=== PATIENT | female | born 1970 | race Caucasian/White ===

== ENCOUNTER 2021-11-16 00:33 | Inpatient (IN) | payer OTHER, SELFPAY ==
[2021-11-16] VITALS (9 sets, daily range): BP systolic 98–119; BP diastolic 51–67; PULSE 80–96; RESP 14–22; TEMP 36.4–37.3; O2SAT 95–98; BMI 19.3
--- NOTE | 2021-11-16 | ECG_ITS ---
Test Reason : sob Blood Pressure : / mmHG Vent. Rate : 085 BPM Atrial Rate : 085 BPM P-R Int : 122 ms QRS Dur : 080 ms QT Int : 362 ms P-R-T Axes : 072 067 063 degrees QTc Int : 430 ms Normal sinus rhythm Nonspecific ST abnormality Abnormal ECG No previous ECGs available Referred By: Generic ED Physician Electronically Signed By:SWATHI LAIRD MD
--- NOTE | ~2021-11-16 | XR_ITS ---
EXAMINATION: XR CHEST CLINICAL INFORMATION: Shortness of breath COMPARISON: None TECHNIQUE: 2 views of the chest were obtained. FINDINGS: Lung volumes are symmetric. On the lateral view there is mild focal opacity overlying the posterior lower lobes, without definite correlate on the frontal view. No evidence of pneumothorax, pleural effusion, or pulmonary edema. The cardiomediastinal contour is unremarkable. No acute osseous findings are seen. XR/XR chest 2V IMPRESSION: Suggestion of mild focal lower lobe opacity on the lateral view, without a definite correlate on the frontal view. Short-term radiographic follow-up would be helpful to assess for developing consolidation.
--- NOTE | ~2021-11-16 | CT_ITS ---
EXAMINATION: CT ANGIOGRAM OF THE CHEST WITH AND WITHOUT CONTRAST (CT PULMONARY ANGIOGRAM FOR PE) CLINICAL INFORMATION: Reason for Exam chest pain COMPARISON: Chest x-ray from earlier today TECHNIQUE: Prior to contrast administration, noncontrast localization images were obtained. Subsequently, multidetector volumetric imaging was performed from the thoracic inlet to below the diaphragms following the administration of 65 mL Omnipaque 350 intravenous contrast. No contrast reaction reported Sagittal, coronal, and MIP oblique sagittal reformatted images were obtained on the CT workstation, uploaded to PACS, and reviewed. This CT examination was performed using dose optimization techniques as appropriate, variously including the following: *Automated exposure control *Adjustment of mA and/or kV according to patient size (this includes techniques or standardized protocols for targeted exams where dose is matched to indication/reason for exam; i.e. extremities or head) *Use of iterative reconstruction technique Total exam dose-length product 181 mGy-cm FINDINGS: QUALITY OF STUDY/CONTRAST BOLUS: Satisfactory. PULMONARY ARTERIES: There is segmental to subsegmental embolus in the posterior right lower lobe. Focus of thrombus is also noted near the origin of the superior right lower lobe segmental vessel. There is possible subsegmental embolus in the left lower lobe, though this is suboptimally assessed due to motion artifact. THORACIC AORTA: No aneurysm or dissection. LUNG: Biapical scarring is noted. There is mild upper lobe predominant emphysema. There is a region of focal mixed density consolidation in the posterior basilar right lower lobe, suggesting developing pulmonary infarct given the presence of pulmonary embolus. Component of subsegmental atelectasis is also likely present at the right base. PLEURA: Trace right pleural effusion. No pneumothorax. MEDIASTINUM: A subcentimeter left thyroid lobe nodule is noted. There are subcentimeter mediastinal lymph nodes within the range of normal variation. Cardiac size is within normal limits; no pericardial effusion. CHEST WALL/AXILLA: No axillary or internal mammary lymphadenopathy. OSSEOUS STRUCTURES: No acute or suspicious osseous abnormality. UPPER ABDOMEN: Unremarkable. No reflux of contrast into the hepatic veins to suggest elevated right heart pressures. CT/CT angio chest PE protocol IMPRESSION: 1. Segmental to subsegmental right lower lobe pulmonary embolus. Additional subsegmental embolus in the left lower lobe cannot be excluded. 2. Region of mixed density consolidation in the posterior basilar right lower lobe, suggesting developing pulmonary infarct. 3. Trace right pleural effusion. 4. Mild upper lobe predominant emphysema. VTE: positive This critical result was discussed with Dr. Moran on 11/16/2021 5:53 AM, and it was ascertained that the content and urgency of the report was understood at the time of direct communication.
[2021-11-16 01:40] LABS: MANUAL DIFF FLAG NO
[2021-11-16 01:41] LABS: Basophils Absolute Auto 0.1 X10*3/uL (0.0-0.2); Basophils Percent Auto 0.5 % (0-2); Eosinophils Absolute Auto 0.1 X10*3/uL (0.0-0.4); Eosinophils Percent Auto 1.1 % (0-4); Hemoglobin 13.2 g/dl (12.0-16.0); Imm Gran Abs Auto 0.04 X10*3/uL (0.00-0.03); Imm Gran Pct Auto 0.3 % (0.0-0.4); Lymphocytes Absolute Auto 2.1 X10*3/uL (1.2-4.9); Mean Corpuscular Hemoglobin 28.2 pg (27.0-33.0); Mean Corpuscular Volume 85.5 fL (80.0-98.0); Mean Platelet Volume 9.4 fL (9.4-12.3); Monocytes Percent Auto 7.8 % (2-11); Neutrophils Absolute Auto 9.7 x10*3/uL (2.0-8.3); Neutrophils Percent Auto 74.3 % (45-73); Platelet Count 265 X10*3/uL (160-400); Red Blood Count 4.68 X10*6/uL (4.20-5.50); Red Cell Distribution Width 13.7 % (11.0-16.0); White Blood Count 13.1 X10*3/uL (4.8-10.8)
[2021-11-16 02:06] LABS: Alanine Aminotransferase 7 U/L (0-31); Albumin Level 4.4 g/dL (3.5-5.0); Alkaline Phosphatase 85 U/L (39-117); Anion Gap 14 (12-20); Aspartate Amino Transferase 10 U/L (5-31); Bilirubin Total 0.7 mg/dL (0.0-1.0); Blood Urea Nitrogen 12 mg/dL (9-16); Calcium 9.1 mg/dL (8.4-10.2); Carbon Dioxide 20 mmol/L (22-29); Chloride 106 mmol/L (96-108); Creatinine Clr Calc Pharmacy 67.7; Estimated Glomerular Filt Rate > 60; Glucose Random 137 mg/dL (60-115); Potassium 3.9 mmol/L (3.3-5.1); Sodium 136 mmol/L (135-145); Total Protein 7.5 g/dL (6.5-8.0)
[2021-11-16 02:12] LABS: Troponin-I High Sensitivity < 3.5 ng/L (<3.5-17.0)
--- NOTE | 2021-11-16 04:44 | ED.SOB ---
HPI - SOB/Dyspnea General Chief Complaint: Dyspnea Stated Complaint: collapsed lung? Time Seen by Provider: 11/16/21 04:41 History of Present Illness HPI Narrative: Patient is a 50-year-old female presents today with having back pain. Patient claimed was very sudden in onset it is associated with shortness of breath. It is worse with taking deep breath. Radiates from posterior mid chest to the right shoulder. Patient has a long history of smoking. No history of diabetes, hypertension, high cholesterol, PA. Patient from home. There is no leg swelling. There is no diaphoresis. No chance of being . Related Data Allergies Allergy/AdvReac Type Severity Reaction Status Date / Time No Known Allergies Allergy Verified 11/16/21 01:31 Review of Systems Review of Systems: Positive posterior mid back pain. Positive shortness of breath Yes all other systems are reviewed and are negative [facility] Past Medical History Attestation statement: The following information was validated with the patient. Social History Social History Alcohol intake: current Alcohol intake frequency: 0-2 drinks per day Patient Tobacco Use Status: Current everyday Tobacco user Use of substances other than those prescribed or required for medical reasons: No Advance Directives: No Patient : No Physical Exam Vital Signs: Vital Signs: Last Vital Signs Temp 98.4 F 11/16/21 01:24 Pulse 88 11/16/21 05:34 Resp 16 11/16/21 05:36 BP 107/65 11/16/21 05:34 Pulse Ox 98 11/16/21 05:34 O2 Del Method 11/16/21 05:34 BMI result Body Mass Index 19.3 Appearance: Alert. Oriented X3. No acute distress. Eyes: Pupils equal, round and reactive to light. ENT: Pharynx normal. Neck: Normal inspection. Neck supple. No lymph nodes noted. No crepitus CVS: Normal heart rate and rhythm. Pulses normal. Normal S1 and S2 Respiratory: No respiratory distress. Breath sounds normal. No Wheezing. No rales Abdomen: Soft and nontender. No rigidity. No distention. good BS x4 Skin: Skin warm and dry. Normal skin color. Normal skin turgor. Extremities: No lower extremity edema. Neurovascular intact to all extremities. No Lacerations. No Rash Neuro: Oriented X 3. No motor deficit. No sensory deficit. Moving all extermities. No slurred speech MDM - SOB/Dyspnea MDM Narrative Medical decision making narrative: Patient's EKG showed a sinus pattern heart rate is 70 [place] QRS QT within normal limits is no acute ST segment elevation Positive chest pain worse with deep inspiration. Long-time smoker. Chest x-ray was nonspecific. A CTA of the chest was done. It is showed positive right-sided pulmonary emboli. The finding was discussed with the hospitalist team. Patient was started on Lovenox. Will admit for further evaluation of the pulmonary emboli. Patient's respiratory rate is 22 likely related to the PE. Patient's O2 sats 97% on room air. Medical Records Attestation: I reviewed the patient's medical records. Lab Data Attestation: I reviewed the patient's lab results. Result diagrams: 11/16/21 01:35 11/16/21 01:35 Labs: Lab Results 11/16/21 11/16/21 11/16/21 Range/Units 01:35 01:35 01:35 WBC 13.1 H (4.8-10.8) X10*3/uL RBC 4.68 (4.20-5.50) X10*6/uL Hgb 13.2 (12.0-16.0) g/dl Hct 40.0 (37.0-47.0) % MCV 85.5 (80.0-98.0) fL MCH 28.2 (27.0-33.0) pg MCHC 33.0 (31.0-35.0) g/dl RDW 13.7 (11.0-16.0) % Plt Count 265 (160-400) X10*3/uL MPV 9.4 (9.4-12.3) fL Immature Gran % (Auto) 0.3 (0.0-0.4) % Neut % (Auto) 74.3 H (45-73) % Lymph % (Auto) 16.0 L (20-40) % Whitman % (Auto) 7.8 (2-11) % Eos % (Auto) 1.1 (0-4) % Baso % (Auto) 0.5 (0-2) % Lymph # (Auto) 2.1 (1.2-4.9) X10*3/uL [place]man # (Auto) 1.0 (0.1-1.2) X10*3/uL Eos # (Auto) 0.1 (0.0-0.4) X10*3/uL Baso # (Auto) 0.1 (0.0-0.2) X10*3/uL Abs Immat Gran (auto) 0.04 H (0.00-0.03) X10*3/uL Absolute Neuts (auto) 9.7 H (2.0-8.3) x10*3/uL Absolute Nucleated RBC 0.000 (0.0-0.012) X10*3/uL Nucleated RBC % (auto) 0.0 (0.0-0.2) /100WBC Sodium 136 (135-145) mmol/L Potassium 3.9 (3.3-5.1) mmol/L Chloride 106 (96-108) mmol/L Carbon Dioxide 20 L (22-29) mmol/L Anion Gap 14 (12-20) BUN 12 (9-16) mg/dL Creatinine 0.96 (0.5-1.4) mg/dL Estim Creat Clear Calc 67.7 Estimated GFR > 60 Random Glucose 137 H (60-115) mg/dL Calcium 9.1 (8.4-10.2) mg/dL Total Bilirubin 0.7 (0.0-1.0) mg/dL AST 10 (5-31) U/L ALT 7 (0-31) U/L Alkaline Phosphatase 85 (39-117) U/L Troponin I High Sens < 3.5 (<3.5-17.0) ng/L Total Protein 7.5 (6.5-8.0) g/dL Albumin 4.4 (3.5-5.0) g/dL Discharge Plan Discharge Clinical Impression: Pulmonary embolism Patient Disposition: Admitted As Inpatient
[2021-11-16] MEDS: iohexoL 350 MG/ML 100 ML INFUS..BTL 65 ML IV (05:26)
--- NOTE | 2021-11-16 07:53 | PHA.MEDREC ---
MED REC COMPLETE, PATIENT IS NOT ON ANY MEDICATIONS Pharmacy Consult ? Medication Reconciliation Pharmacy has completed the medication reconciliation.
[2021-11-16] MEDS: Morphine Sulfate 2 MG/ML CARTRIDGE IVPUSH (11:06)
[2021-11-16 11:08] LABS: Hematocrit 38.6 % (37.0-47.0); Hemoglobin 12.9 g/dl (12.0-16.0); Mean Corpuscular HGB Conc 33.4 g/dl (31.0-35.0); Mean Corpuscular Hemoglobin 28.7 pg (27.0-33.0); Mean Corpuscular Volume 85.8 fL (80.0-98.0); Mean Platelet Volume 10.1 fL (9.4-12.3); Platelet Count 258 X10*3/uL (160-400); Red Cell Distribution Width 13.7 % (11.0-16.0); White Blood Count 10.8 X10*3/uL (4.8-10.8)
--- NOTE | 2021-11-16 11:12 | PM.IMHP ---
History of Present Illness Date of Service: 11/16/21 Chief Complaint: chest pain 50 year old female with with no medical issues, but has family hisotry of clotting desorder ( mother and brother ) had blood clots, she had car trip to [facility] and back in middle of September. She had suddent onset of severe chest pain on the right side going to shoulder yesterday while in shower and persisted, no sob, no cough, troponin and ECG unremarkable. CT chest show PE as detail here: 1.? Segmental to subsegmental right lower lobe pulmonary embolus. Additional subsegmental embolus in the left lower lobe cannot be excluded. 2.? Region of mixed density consolidation in the posterior basilar right lower lobe, suggesting developing pulmonary infarct. 3.? Trace right pleural effusion. 4.? Mild upper lobe predominant emphysema. She is not hypoxic, no tachycardia and hemodynamically stable. Review of Systems Review of Systems: Chest pain no sob no dizziness no swelling of legs Yes all other systems are reviewed and are negative PMFSH Pertinent family history: Mother and brother with blood clots, no details Social History Alcohol intake: current Alcohol intake frequency: 0-2 drinks per day Patient Tobacco Use Status: Current everyday Tobacco user Use of substances other than those prescribed or required for medical reasons: No Advance Directives: No Patient : No Meds Allergies Allergy/AdvReac Type Severity Reaction Status Date / Time No Known Allergies Allergy Verified 11/16/21 01:31 Active Medications: Current Medications Melatonin (Melatonin 3 Mg Tablet) 6 mg PO BEDTIME PRN PRN Reason: Insomnia Morphine Sulfate (Morphine Sulfate 2 Mg/Ml Cartridge) 2 mg IVPUSH Q3H PRN; Protocol PRN Reason: Pain, Severe (Pain Scale 7-10) Last Admin: 11/16/21 11:06 Dose: 2 mg Oxycodone HCl (Oxycodone Hcl Immed Release 5 Mg Tablet) 5 mg PO Q6H PRN PRN Reason: Pain, Severe (Pain Scale 7-10) Pharmacy Consult (Consult Rx Perform Med Rec) 1 each MISCELLANE ONCE PRN PRN Reason: Consult order Sodium Chloride (0.9 % Sodium Chloride Flush 3 Ml Syringe) 3 ml IVFLUSH [facility] Home Medications Medication Instructions Recorded Confirmed Last Taken Type No Known Home Meds 11/16/21 11/16/21 Unknown History Physical Exam Vital Signs and Narrative: Vital Signs: Last Vital Signs Temp 98.5 F 11/16/21 07:25 Pulse 80 11/16/21 07:25 Resp 18 11/16/21 07:25 BP 103/59 L 11/16/21 07:25 Pulse Ox 97 11/16/21 07:25 O2 Del Method 11/16/21 07:25 BMI result Body Mass Index 19.3 Results Labs CBC and Chem 7: 11/16/21 10:51 11/16/21 01:35 Labs: Laboratory Results - last 24 hr 11/16/21 11/16/21 11/16/21 01:35 01:35 01:35 MCV 85.5 MCH 28.2 MCHC 33.0 RDW 13.7 Plt Count 265 MPV 9.4 Immature Gran % (Auto) 0.3 Neut % (Auto) 74.3 H Lymph % (Auto) 16.0 L [place] % (Auto) 7.8 Eos % (Auto) 1.1 Baso % (Auto) 0.5 Lymph # (Auto) 2.1 [place] # (Auto) 1.0 Eos # (Auto) 0.1 Baso # (Auto) 0.1 Abs Immat Gran (auto) 0.04 H Absolute Neuts (auto) 9.7 H Absolute Nucleated RBC 0.000 Nucleated RBC % (auto) 0.0 Anion Gap 14 Estim Creat Clear Calc 67.7 Estimated GFR > 60 Random Glucose 137 H Calcium 9.1 Total Bilirubin 0.7 AST 10 ALT 7 Alkaline Phosphatase 85 Troponin I High Sens < 3.5 Total Protein 7.5 Albumin 4.4 11/16/21 10:51 MCV 85.8 MCH 28.7 MCHC 33.4 RDW 13.7 Plt Count 258 MPV 10.1 Immature Gran % (Auto) Neut % (Auto) Lymph % (Auto) [place] % (Auto) Eos % (Auto) Baso % (Auto) Lymph # (Auto) [place] # (Auto) Eos # (Auto) Baso # (Auto) Abs Immat Gran (auto) Absolute Neuts (auto) Absolute Nucleated RBC 0.000 Nucleated RBC % (auto) 0.0 Anion Gap Estim Creat Clear Calc Estimated GFR Random Glucose Calcium Total Bilirubin AST ALT Alkaline Phosphatase Troponin I High Sens Total Protein Albumin Imaging Radiologist's Impressions: Impressions Chest X-Ray 11/16/21 01:51 IMPRESSION: Suggestion of mild focal lower lobe opacity on the lateral view, without a definite correlate on the frontal view. Short-term radiographic follow-up would be helpful to assess for developing consolidation. Chest CTA 11/16/21 05:20 IMPRESSION: 1. Segmental to subsegmental right lower lobe pulmonary embolus. Additional subsegmental embolus in the left lower lobe cannot be excluded. 2. Region of mixed density consolidation in the posterior basilar right lower lobe, suggesting developing pulmonary infarct. 3. Trace right pleural effusion. 4. Mild upper lobe predominant emphysema. VTE: positive This critical result was discussed with Dr. Moran on 11/16/2021 5:53 AM, and it was ascertained that the content and urgency of the report was understood at the time of direct communication. Assessment and Plan (1) Pulmonary embolism: Status: Acute Plan Acute pulmonary Embolism with chest pain due to pulmonary infarction in patient with positive family history of VTE Plan: Given hemodynamic stability[facility] will need [facility] work, and therefore will consult Heme. Morphine and Oxycodone for pain Quality Stroke Does the patient have a stroke diagnosis?: No VTE Prior VTE?: No VTE Risk Level:: Medical - moderate - high VTE Device Contraindication: Treatment Not Indicated VTE Drug Contraindication: N/A - Med Ordered
[2021-11-16 11:19] LABS: INTERNATIONAL NORM RATIO 1.1 (0.9-1.1); Prothrombin Time 12.4 SEC (10.0-13.1)
[2021-11-16 11:22] LABS: Partial Thromboplastin Time 30.2 SEC (24.1-38.0)
[2021-11-16] MEDS: Enoxaparin Sodium 60 MG/0.6 ML SYRINGE SUBCUT (11:23)
[2021-11-16 14:38] LABS: COVID-19 Test Negative (Negative)
[2021-11-16] MEDS: oxyCODONE HCl Immed Release 5 MG TABLET PO ×2 (15:03→22:44)
[2021-11-16] MEDS: 0.9 % Sodium Chloride Flush 3 ML SYRINGE IVFLUSH (15:04)
--- NOTE | 2021-11-16 16:06 | PM.HEMONCCN ---
Subjective - Subjective Chief complaint: Right lower chest pain Patient: new to practice Consult date: 11/16/21 Requesting Physician: Dr. Weller Primary Care Provider: None Physician HPI - Consult Narrative Reason for consult: Pulmonary embolism Narrative: Stacey Perez is a 50 year old female who presented with right pleuritic chest pain and found to have pulmonary embolism. She was in good health until she experienced sharp sudden onset pain just yesterday while in the shower. It was intense enough that she thought her lung had collapsed. She reported associated shortness of breath, no diaphoresis or dizziness. No history of pain or swelling in her legs. She travels to in from [place], last travel was in September 2021. She is a chronic smoker. She does not have a PCP, she has never had a screening mammogram on colonoscopy. 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 She reached menopause at age 44. She has 2 grown-up children and a grandchild. Her family history significant for mother and a brother both having blood clots. She does not know the circumstances around this. She does not talk to her brother and her mother is . Her father was treated for early prostate cancer. There is no other cancer in the family that she can recall. Review of Systems - Constitutional Reports as per HPI, Denies fatigue, Denies lack of energy, Denies malaise, Denies night sweats, Denies poor appetite, Denies weakness, Denies weight loss - Cardiovascular Reports no additional cardiovascular complaints - Respiratory Reports no additional respiratory complaints - Gastrointestinal Reports no additional gastrointestinal complaints Oncology Screenings - ECOG Performance Status ECOG Performance Status: 1 [facility] Family History: Family History (Last Updated 11/16/21 @ 16:12 by Nieves Hogue MD) Mother DVT (deep venous thrombosis) Brother DVT (deep venous thrombosis) Father Prostate cancer Social History: Social History (Last Reviewed 11/16/21 @ 11:17 by Lorenzo Weller MD) Tobacco History: Patient Tobacco Use Status: Current everyday Tobacco Substance Use History: Use of substances other than those prescribed or required for medical reasons: No Advance Directives: Advance Directives: No Advance Directives Information Provided: Advance Directives Information Provided comment: declined Nutrition Assessment: Patient : No Home Medications and Allergies Current Medications: Current Medications Melatonin (Melatonin 3 Mg Tablet) 6 mg PO BEDTIME PRN PRN Reason: Insomnia Morphine Sulfate (Morphine Sulfate 2 Mg/Ml Cartridge) 2 mg IVPUSH Q3H PRN; Protocol PRN Reason: Pain, Severe (Pain Scale 7-10) Last Admin: 11/16/21 11:06 Dose: 2 mg Oxycodone HCl (Oxycodone Hcl Immed Release 5 Mg Tablet) 5 mg PO Q6H PRN PRN Reason: Pain, Severe (Pain Scale 7-10) Last Admin: 11/16/21 15:03 Dose: 5 mg Pharmacy Consult (Consult Rx Perform Med Rec) 1 each MISCELLANE ONCE PRN PRN Reason: Consult order Sodium Chloride (0.9 % Sodium Chloride Flush 3 Ml Syringe) 3 ml IVFLUSH QSHIFT JIMBO Last Admin: 11/16/21 15:04 Dose: 3 ml Home Medications Medication Instructions Recorded Confirmed Type No Known Home Meds 11/16/21 11/16/21 History Allergies Allergy/AdvReac Type Severity Reaction Status Date / Time No Known Allergies Allergy Verified 11/16/21 01:31 Physical Exam Vital signs: Vital Signs Temp 97.6 F 11/16/21 14:47 Pulse 89 11/16/21 14:47 Resp 16 11/16/21 14:51 BP 103/51 L 11/16/21 14:47 Pulse Ox 96 11/16/21 14:47 O2 Del Method 11/16/21 14:47 Intake & Output 11/15/21 11/16/21 11/16/21 18:59 06:59 18:59 Other: Weight 61.235 kg Weight 61.235 kg - Constitutional Present: no acute distress, average body habitus - Routine HEENT Exam Head: Present: normal inspection Eye: Present: EOMI, PERRL - Routine Neck Exam Present: supple. Absent: lymphadenopathy - Routine Respiratory Exam Present: CTAB. Absent: accessory muscle use - Routine Cardiovascular Exam Cardiovascular: Present: S1, S2 - Routine Abdominal Exam Present: soft - Routine Extremities Exam Present: normal inspection, pulses intact. Absent: pedal edema - Routine Skin Exam Present: intact. Absent: cyanosis - Routine Neurological Exam Present: alert, oriented X3 Hem/Onc Consult Result - Labs CBC & Chem 7: 11/16/21 10:51 11/16/21 01:35 Labs: Short CBC 11/16/21 11/16/21 Range/Units 01:35 10:51 WBC 13.1 H 10.8 (4.8-10.8) X10*3/uL Hgb 13.2 12.9 (12.0-16.0) g/dl Hct 40.0 38.6 (37.0-47.0) % Plt Count 265 258 (160-400) X10*3/uL BMP 11/16/21 01:35 Sodium 136 Potassium 3.9 Chloride 106 Carbon Dioxide 20 L BUN 12 Creatinine 0.96 Calcium 9.1 Liver Function 11/16/21 Range/Units 01:35 Total Bilirubin 0.7 (0.0-1.0) mg/dL AST 10 (5-31) U/L ALT 7 (0-31) U/L Alkaline Phosphatase 85 (39-117) U/L Albumin 4.4 (3.5-5.0) g/dL Assessment and Plan Patient Active problem list reviewed?: Yes (1) Pulmonary embolism Status: Acute Assessment and plan: 1. This is a pleasant 50-year-old woman with pulmonary embolism. CT angiogram performed 11/16/21 revealed segmental/subsegmental embolism in the posterior right lower lobe. Possible subsegmental embolus in left lower lobe but suboptimally assessed. Area of focal density/ consolidation in posterior basilar right lower lobe suggesting developing pulmonary infarct . Trace right pleural effusion. Mild emphysema, no other suspicious findings. Patient has been started on Lovenox 1 mg/kg b.i.d.. There is family history of thromboembolism. Her risk factors is family history as well as her history of smoking. Although she traveled by car to [place] and back this was in September. She could have developed lower extremity or pelvic vein thrombosis back then. Thrombophilia workup will be submitted in the outpatient setting. She can be transitioned to DOAC. For now, I have recommended at least 6 months of anticoagulation. Depending on thrombophilia workup, further recommendations will be made. Patient was advised to establish with PCP and go for screening mammogram and colonoscopy. She was advised to quit smoking. I thank you for this consultation. - Time Spent With Patient Time Spent with Patient (in minutes): 25
[2021-11-16 19:22] LABS: D Dimer High Sensitivity 313 NG/ML
--- NOTE | 2021-11-16 19:24 | PC.NURSE ---
Addendum entered by Patricia Romero 11/17/21 07:01: report given to NILES Paredes Addendum entered by Patricia Romero 11/16/21 19:52: pt is alert and oriented. no sign of acute distress notice. breathing equally unlabored. denies any chest pain or sob Original Note: report received from NILES Lea and Raisa
[2021-11-16] MEDS: Apixaban 5 MG TABLET 10 MG PO (22:42)
[2021-11-17 04:39] LABS: Hematocrit 37.6 % (37.0-47.0); Hemoglobin 12.5 g/dl (12.0-16.0); Mean Corpuscular HGB Conc 33.2 g/dl (31.0-35.0); Mean Corpuscular Hemoglobin 28.4 pg (27.0-33.0); Mean Corpuscular Volume 85.5 fL (80.0-98.0); Platelet Count 235 X10*3/uL (160-400); Red Cell Distribution Width 13.4 % (11.0-16.0); White Blood Count 10.9 X10*3/uL (4.8-10.8)
[2021-11-17 04:51] LABS: INTERNATIONAL NORM RATIO 1.5 (0.9-1.1)
[2021-11-17 05:54] VITALS: BP 119/59; PULSE 86; RESP 20; TEMP 37.2; O2SAT 94
[2021-11-17 08:03] VITALS: BP 105/63; PULSE 82; RESP 14; O2SAT 93
[2021-11-17] MEDS: Apixaban 5 MG TABLET 10 MG PO (09:08)
[2021-11-17] MEDS: 0.9 % Sodium Chloride Flush 3 ML SYRINGE IVFLUSH (09:09)
--- NOTE | 2021-11-17 09:25 | MHC.CM.PN ---
CM met with Patient at bedside. Patient lives in a house with her Boyfriend and she is functionally independent and working. Home/no services is the goal and CM has initiated and will follow for dc planning. Patient has received no Covid vax and she has no PCP, but states that she is looking for one.
[2021-11-17] MEDS: oxyCODONE HCl Immed Release 5 MG TABLET PO (10:14)
--- NOTE | 2021-11-17 11:29 | P.DS_ITS ---
DS: Providers Provider Date of Service: 11/17/21 Date of admission: 11/16/21 10:46 Date of discharge: 11/17/21 Primary care physician: None Physician Consults: 11/16/21 11:43 Consult to Hematology / Oncology Routine Consulting Provider: Nieves Hogue Reason for consultation: Unprovoked PE Has provider been notified: No DS: Diagnosis Discharge Diagnosis (1) Pulmonary embolism: Status: Acute (2) Pulmonary infarction: Status: Acute (3) Tobacco abuse: Status: Acute DS: Summary Hospital Course Hospital Course: from admission H+P by hospitalist Lorenzo Weller MD, 11/16/21: 50 year old female with with no medical issues, but has family hisotry of clotting desorder ( mother and brother ) had blood clots, she had car trip to [facility] and back in middle of September. She had suddent onset of severe chest pain on the right side going to shoulder yesterday while in shower and persisted, no so b, no cough,? troponin and ECG unremarkable. ? CT chest show PE as detail here:?1.? Segmental to subsegmental right lower lobe pulmonary embolus. Additional subsegmental embolus in the left lower lobe cannot be excluded. 2.? Region of mixed density consolidation in the posterior basilar right lower lobe, suggesting developing pulmonary infarct. 3.? Trace right pleural effusion. 4.? Mild upper lobe predominant emphysema. She is not hypoxic, no tachycardia and hemodynamically stable.? She was admitted to the hospitalist service and started on therapeutic enoxaparin. She was not hypoxic and she was completely hemodynamically stable. Risk factors for PE included family history [both her brother and mother had PEs] and smoking status, along with travel to [place] by car in September. Hematology was consulted. She was transitioned to apixaban. Six months of anticoagulation was recommended. She will be seen by the torsion spring coiling machine setter as an outpatient and thrombophilia workup done then. She was advised to establish primary care and obtain age-appropriate cancer screening. She was advised to quit smoking. Time Spent with Patient Time attestation: Total time spent providing and/or coordinating discharge services: Discharge coordination time: Greater than 30 minutes Quality: Safe Use of Opioids Does Pt have an Active Cancer Diagnosis on the Problem List?: No Quality: Stroke Does the patient have a stroke diagnosis?: No Physical Exam Vital Signs: Vital Signs: Last Vital Signs Temp 99 F 11/17/21 05:54 Pulse 82 11/17/21 08:03 Resp 14 11/17/21 08:03 BP 105/63 11/17/21 08:03 Pulse Ox 93 11/17/21 08:03 O2 Del Method 11/17/21 08:03 BMI result Body Mass Index 19.3 Gen: in no acute distress HEENT: sclera anicteric, moist mucus membranes Neck: supple Lungs: clear to auscultation bilaterally Heart: regular rate and rhythm, no murmurs Abd: soft, non-tender, non-distended Ext: no edema Skin: warm/well-perfused Neuro: alert and oriented x3, no focal findings Psych: appropriate affect DS: Data Data Completed and Pending Completed studies during hospitalization [Text1]: Laboratory Results WBC 10.9 X10*3/uL (4.8-10.8) H 11/17/21 04:20 RBC 4.40 X10*6/uL (4.20-5.50) 11/17/21 04:20 Hgb 12.5 g/dl (12.0-16.0) 11/17/21 04:20 Hct 37.6 % (37.0-47.0) 11/17/21 04:20 MCV 85.5 fL (80.0-98.0) 11/17/21 04:20 MCH 28.4 pg (27.0-33.0) 11/17/21 04:20 MCHC 33.2 g/dl (31.0-35.0) 11/17/21 04:20 RDW 13.4 % (11.0-16.0) 11/17/21 04:20 Plt Count 235 X10*3/uL (160-400) 11/17/21 04:20 MPV 10.0 fL (9.4-12.3) 11/17/21 04:20 Immature Gran % (Auto) 0.3 % (0.0-0.4) 11/16/21 01:35 Neut % (Auto) 74.3 % (45-73) H 11/16/21 01:35 Lymph % (Auto) 16.0 % (20-40) L 11/16/21 01:35 [place] % (Auto) 7.8 % (2-11) 11/16/21 01:35 Eos % (Auto) 1.1 % (0-4) 11/16/21 01:35 Baso % (Auto) 0.5 % (0-2) 11/16/21 01:35 Lymph # (Auto) 2.1 X10*3/uL (1.2-4.9) 11/16/21 01:35 [place] # (Auto) 1.0 X10*3/uL (0.1-1.2) 11/16/21 01:35 Eos # (Auto) 0.1 X10*3/uL (0.0-0.4) 11/16/21 01:35 Baso # (Auto) 0.1 X10*3/uL (0.0-0.2) 11/16/21 01:35 Abs Immat Gran (auto) 0.04 X10*3/uL (0.00-0.03) H 11/16/21 01:35 Absolute Neuts (auto) 9.7 x10*3/uL (2.0-8.3) H 11/16/21 01:35 Absolute Nucleated RBC 0.000 X10*3/uL (0.0-0.012) 11/17/21 04:20 Nucleated RBC % (auto) 0.0 /100WBC (0.0-0.2) 11/17/21 04:20 PT 18.0 SEC (10.0-13.1) H 11/17/21 04:20 INR 1.5 (0.9-1.1) H 11/17/21 04:20 APTT 30.2 SEC (24.1-38.0) 11/16/21 10:51 D-Dimer High Sensitivty 313 NG/ML 11/16/21 10:51 Sodium 136 mmol/L (135-145) 11/16/21 01:35 Potassium 3.9 mmol/L (3.3-5.1) 11/16/21 01:35 Chloride 106 mmol/L (96-108) 11/16/21 01:35 Carbon Dioxide 20 mmol/L (22-29) L 11/16/21 01:35 Anion Gap 14 (12-20) 11/16/21 01:35 BUN 12 mg/dL (9-16) 11/16/21 01:35 Creatinine 0.96 mg/dL (0.5-1.4) 11/16/21 01:35 Estim Creat Clear Calc 67.7 11/16/21 01:35 Estimated GFR > 60 11/16/21 01:35 Random Glucose 137 mg/dL (60-115) H 11/16/21 01:35 Calcium 9.1 mg/dL (8.4-10.2) 11/16/21 01:35 Total Bilirubin 0.7 mg/dL (0.0-1.0) 11/16/21 01:35 AST 10 U/L (5-31) 11/16/21 01:35 ALT 7 U/L (0-31) 11/16/21 01:35 Alkaline Phosphatase 85 U/L (39-117) 11/16/21 01:35 Troponin I High Sens < 3.5 ng/L (<3.5-17.0) 11/16/21 01:35 Total Protein 7.5 g/dL (6.5-8.0) 11/16/21 01:35 Albumin 4.4 g/dL (3.5-5.0) 11/16/21 01:35 COVID-19 ([facility]) Negative (Negative) 11/16/21 14:17 COVID-19 Clin Com See Note 11/16/21 14:17 Impressions Chest X-Ray 11/16/21 01:51 IMPRESSION: Suggestion of mild focal lower lobe opacity on the lateral view, without a definite correlate on the frontal view. Short-term radiographic follow-up would be helpful to assess for developing consolidation. Chest CTA 11/16/21 05:20 IMPRESSION: 1. Segmental to subsegmental right lower lobe pulmonary embolus. Additional subsegmental embolus in the left lower lobe cannot be excluded. 2. Region of mixed density consolidation in the posterior basilar right lower lobe, suggesting developing pulmonary infarct. 3. Trace right pleural effusion. 4. Mild upper lobe predominant emphysema. VTE: positive This critical result was discussed with Dr. Moran on 11/16/2021 5:53 AM, and it was ascertained that the content and urgency of the report was understood at the time of direct communication. Discharge Plan Discharge Patient Disposition: Home, Self-Care Discharge Diagnosis: acute pulmonary embolism, tobacco abuse [place]: [facility] [Provider Group] - 1 Week Nieves Hogue MD [Physician] - 1 Week Discharge Medications: New oxycodone 5 mg Tablet 5 mg PO TID PRN (Reason: Pain, Severe (Pain Scale 7-10)) 9 Days Qty: 9 0RF Rx Instructions: Partial Fill upon patient request. apixaban 5 mg (74 tabs) tablets,dose pack 5 mg PO BID Qty: 74 0RF Rx Instructions: 10 mg bid x 7 days, then 5 mg bid nicotine (polacrilex) [Nicorette] 2 mg gum 2 mg buccal Q1H Qty: 110 0RF Discharge Orders: Discharge Order (Routine); Ordered 11/17/21 Ordered By: Hodan Duran Diet: Advance to usual diet Activity on Discharge: As tolerated Stand Alone Forms: Patient Portal Discharge page Care Plan Goals: treatment of pulmonary embolism smoking cessation Health Concerns: pulmonary embolism tobacco abuse Plan of Treatment: apixaban [Eliquis] 10 mg twice daily x 7 days, then 5 mg twice daily, total at least 6 months follow up with Dr Hogue from Hematology within 2 weeks establish primary care as soon as possible and obtain age-appropriate cancer screening: colonoscopy, mammography quit smoking; use nicotine gum to help for pain, use acetaminophen for mild-moderate pain and oxycodone for severe pain Assessment: See Discharge Summary Patient Instructions: Apixaban (By mouth), Pulmonary Embolism (DC)
--- NOTE | 2021-11-17 11:56 | MHC.CM.PN ---
Patient has been medically cleared for dc to home today, self care.
[2021-11-17 11:57] VITALS: BP 105/67; PULSE 91; RESP 17; TEMP 36.8; O2SAT 94
--- NOTE | 2021-11-17 12:01 | MHC.CM.PN ---
Per RN, Patient states that she is able to pay/afford the copay for new Eliquis and CM will provide Patient with 30 day free supply coupon.
--- NOTE | 2021-11-17 14:49 | MHC.CM.PN ---
Patient indicates now that she has a $6,000.00 deductible and can therefor NOT afford the Eliquis. Patient also has no PCP and will therefor will NOT qualify for VNA.
--- NOTE | 2021-11-17 15:01 | MHC.CM.PN ---
Per MD, MD will discuss the plan with Patient. CM awaits further instructions from MD.
[2021-11-17 16:46] VITALS: BP 111/69; PULSE 92; RESP 20; O2SAT 93
== END 2021-11-17 17:15 | disposition home or self-care (01) | DRG 134 ==
LOC: HO.ED 06:34 → HO.EDOVER 10:58
PROVIDERS: Internal Medicine; Admitting Provider Internal Medicine; Emergency Provider Emergency Medicine Emergency Medical Services; Visit Provider Family Medicine
DX: I26.93 Single subsegmental thrombotic pulmonary embolism without acute cor pulmonale (principal); J43.9 Emphysema, unspecified; Z20.822 Contact with and (suspected) exposure to COVID-19; Z87.891 Personal history of nicotine dependence
CPT/HCPCS: 36415; 71046; 71275; 80053; 84484; 85025; 85027; 85379; 85610; 85730; 87635; 93005; 96372; 96374; 99218; 99285; J1650; J2270; Q9967